=== PATIENT | male | born 1955 | race Caucasian/White ===

== ENCOUNTER → 2016-12-15 | Outpatient (REF) | payer OTHER ==
[~2016-12-15] MED LIST: CLON1TAB PO; DEPA1TAB3 PO; DEPA500T2 PO; HYDR1CRE TOP; TRAZ50TA11 PO
[2016-12-15 20:03] LABS: MEAN CORPUSCULAR HGB CONC 33.6 g/dl (32.0-36.5); MEAN CORPUSCULAR VOLUME 89.3 fl (80.0-96.0); PLATELET COUNT, AUTOMATED 170 10^3/uL (150-450); RED CELL DISTRIBUTION WIDTH 13.2 % (11.5-14.5); WHITE BLOOD COUNT 6.3 10^3/uL (4.0-10.0)
[2016-12-15 20:14] LABS: ALBUMIN 3.8 GM/DL (3.2-5.2); ALBUMIN/GLOBULIN RATIO 1.09 (1.00-1.93); ALKALINE PHOSPHATASE 91 U/L (45-117); ALT/SGPT 73 U/L (12-78); ANION GAP 9 MEQ/L (8-16); AST/SGOT 31 U/L (15-37); BILIRUBIN,TOTAL 0.5 MG/DL (0.2-1.0); BLOOD UREA NITROGEN 17 MG/DL (7-18); CALCIUM LEVEL 9.1 MG/DL (8.5-10.1); CARBON DIOXIDE LEVEL 30 MEQ/L (21-32); CHLORIDE LEVEL 99 MEQ/L (98-107); CHOLESTEROL LEVEL 282 MG/DL (<200); CREATININE FOR GFR 1.19 MG/DL (0.70-1.30); GLOMERULAR FILTRATION RATE > 60.0 (>56); GLUCOSE, FASTING 92 MG/DL (70-105); POTASSIUM SERUM 4.4 MEQ/L (3.5-5.1); SODIUM LEVEL 138 MEQ/L (136-145); TOTAL PROTEIN 7.3 GM/DL (6.4-8.2); TRIGLYCERIDES LEVEL 239 MG/DL (<150); VITAMIN B12 LEVEL 1383 PG/ML (247-911)
== END ==
LOC: M SFHCCLAY 18:05
PROVIDERS: ATTEND Nurse Practitioner Family
DX: F32.9 Major depressive disorder, single episode, unspecified (principal)

== ENCOUNTER → 2016-12-15 | Outpatient (REF) | payer OTHER ==
[2016-12-15 20:10] LABS: ALBUMIN 3.7 GM/DL (3.2-5.2); ALBUMIN/GLOBULIN RATIO 1.09 (1.00-1.93); ALKALINE PHOSPHATASE 89 U/L (45-117); ALT/SGPT 76 U/L (12-78); ANION GAP 8 MEQ/L (8-16); AST/SGOT 29 U/L (15-37); BILIRUBIN,DIRECT 0.1 MG/DL (0.0-0.2); BILIRUBIN,TOTAL 0.5 MG/DL (0.2-1.0); BLOOD UREA NITROGEN 17 MG/DL (7-18); CARBON DIOXIDE LEVEL 29 MEQ/L (21-32); CHLORIDE LEVEL 100 MEQ/L (98-107); CHOLESTEROL LEVEL 276 MG/DL (< 200); CHOLESTEROL LEVEL 276 MG/DL (<200); CREATININE FOR GFR 1.12 MG/DL (0.70-1.30); GLOMERULAR FILTRATION RATE > 60.0 (>56); GLUCOSE, FASTING 92 MG/DL (70-105); POTASSIUM SERUM 4.3 MEQ/L (3.5-5.1); SODIUM LEVEL 137 MEQ/L (136-145); TOTAL PROTEIN 7.1 GM/DL (6.4-8.2); TRIGLYCERIDES LEVEL 232 MG/DL (<150)
[2016-12-18 00:07] LABS: Lyme Disease IgG/IgM Antibodie <0.91 ISR (0.00-0.90); Lyme Disease IgM Ab Quantitati <0.80 index (0.00-0.79)
== END ==
LOC: M LAB REF 18:03
PROVIDERS: ATTEND Nurse Practitioner Psychiatric/Mental Health
DX: F31.2 Bipolar disorder, current episode manic severe with psychotic features (principal)

== ENCOUNTER → 2017-04-12 | Outpatient (REF) | payer OTHER ==
[2017-04-12 12:15] LABS: HEMATOCRIT 47.5 % (42.0-52.0); HEMOGLOBIN 16.2 g/dl (14.0-18.0); MEAN CORPUSCULAR HEMOGLOBIN 29.7 pg (27.0-33.0); MEAN CORPUSCULAR HGB CONC 34.1 g/dl (32.0-36.5); MEAN CORPUSCULAR VOLUME 87.2 fl (80.0-96.0); PLATELET COUNT, AUTOMATED 168 10^3/uL (150-450); RED BLOOD COUNT 5.45 10^6/uL (4.30-6.10); RED CELL DISTRIBUTION WIDTH 12.7 % (11.5-14.5); WHITE BLOOD COUNT 6.9 10^3/uL (4.0-10.0)
[2017-04-12 12:36] LABS: ALBUMIN 3.7 GM/DL (3.2-5.2); ALBUMIN/GLOBULIN RATIO 1.03 (1.00-1.93); ALKALINE PHOSPHATASE 92 U/L (45-117); ALT/SGPT 105 U/L (12-78); ANION GAP 8 MEQ/L (8-16); AST/SGOT 47 U/L (7-37); BILIRUBIN,DIRECT 0.1 MG/DL (0.0-0.2); BILIRUBIN,TOTAL 0.4 MG/DL (0.2-1.0); BLOOD UREA NITROGEN 25 MG/DL (7-18); CALCIUM LEVEL 8.7 MG/DL (8.8-10.2); CARBON DIOXIDE LEVEL 28 MEQ/L (21-32); CHLORIDE LEVEL 101 MEQ/L (98-107); CHOLESTEROL LEVEL 187 MG/DL (<200); CHOLESTEROL RISK RATIO 5.666 (<5); CREATININE FOR GFR 1.04 MG/DL (0.70-1.30); GLOMERULAR FILTRATION RATE > 60.0 (>49); GLUCOSE, FASTING 94 MG/DL (70-100); HDL CHOLESTEROL 33 MG/DL (>40); NON-HDL-C 154 MG/DL; POTASSIUM SERUM 4.1 MEQ/L (3.5-5.1); PSA SCREENING 1.24 NG/ML (< 4.0); SODIUM LEVEL 137 MEQ/L (136-145); TOTAL PROTEIN 7.3 GM/DL (6.4-8.2); TRIGLYCERIDES LEVEL 180 MG/DL (<150)
[2017-04-12 12:45] LABS: TOTAL 25(OH) VITAMIN D 54.4 NG/ML (30.0-100.0); VITAMIN B12 LEVEL 1622 PG/ML (247-911)
== END ==
LOC: M SFHCCLAY 08:18
DX: F32.9 Major depressive disorder, single episode, unspecified (principal); E78.5 Hyperlipidemia, unspecified; Z12.5 Encounter for screening for malignant neoplasm of prostate; E55.9 Vitamin D deficiency, unspecified
CPT/HCPCS: 82607

== ENCOUNTER → 2017-10-05 | Outpatient (REF) | payer OTHER ==
[2017-10-05 13:01] LABS: ALBUMIN 3.5 GM/DL (3.2-5.2); ALBUMIN/GLOBULIN RATIO 1.06 (1.00-1.93); ALKALINE PHOSPHATASE 81 U/L (45-117); ALT/SGPT 110 U/L (12-78); ANION GAP 10 MEQ/L (8-16); AST/SGOT 48 U/L (7-37); BILIRUBIN,TOTAL 0.4 MG/DL (0.2-1.0); BLOOD UREA NITROGEN 28 MG/DL (7-18); CALCIUM LEVEL 8.3 MG/DL (8.8-10.2); CARBON DIOXIDE LEVEL 28 MEQ/L (21-32); CHLORIDE LEVEL 103 MEQ/L (98-107); CHOLESTEROL LEVEL 183 MG/DL (<200); CHOLESTEROL RISK RATIO 5.903 (<5); GLOMERULAR FILTRATION RATE > 60.0 (>49); GLUCOSE, FASTING 100 MG/DL (70-100); HDL CHOLESTEROL 31 MG/DL (>40); LDL CHOLESTEROL 102.4 MG/DL (<100); NON-HDL-C 152 MG/DL; POTASSIUM SERUM 4.1 MEQ/L (3.5-5.1); SODIUM LEVEL 141 MEQ/L (136-145); TOTAL PROTEIN 6.8 GM/DL (6.4-8.2); TRIGLYCERIDES LEVEL 248 MG/DL (<150)
[2017-10-05 16:42] LABS: VITAMIN B12 LEVEL 743 PG/ML (247-911)
== END ==
LOC: M SFHCCLAY 08:59
DX: E78.5 Hyperlipidemia, unspecified (principal); E55.9 Vitamin D deficiency, unspecified
CPT/HCPCS: 82607

== ENCOUNTER → 2017-10-05 | Outpatient (REF) | payer OTHER ==
[2017-10-05 12:56] LABS: ALBUMIN 3.5 GM/DL (3.2-5.2); ALBUMIN/GLOBULIN RATIO 1.06 (1.00-1.93); ALKALINE PHOSPHATASE 85 U/L (45-117); ALT/SGPT 106 U/L (12-78); ANION GAP 8 MEQ/L (8-16); AST/SGOT 46 U/L (7-37); BILIRUBIN,TOTAL 0.4 MG/DL (0.2-1.0); BLOOD UREA NITROGEN 28 MG/DL (7-18); CALCIUM LEVEL 8.7 MG/DL (8.8-10.2); CARBON DIOXIDE LEVEL 31 MEQ/L (21-32); CHLORIDE LEVEL 101 MEQ/L (98-107); CREATININE FOR GFR 1.22 MG/DL (0.70-1.30); GLOMERULAR FILTRATION RATE > 60.0 (>49); GLUCOSE, FASTING 103 MG/DL (70-100); SODIUM LEVEL 140 MEQ/L (136-145); TOTAL PROTEIN 6.8 GM/DL (6.4-8.2); VALPROIC ACID (DEPAKOTE) 75.5 UG/ML (50.0-100.0)
== END ==
LOC: M LABDRAWC 12:03
DX: F31.2 Bipolar disorder, current episode manic severe with psychotic features (principal)

== ENCOUNTER → 2018-02-04 | Outpatient (REF) | payer OTHER ==
[~2018-02-04] MED LIST changes: -CLON1TAB PO; +CLON1TAB8 PO; +TRAZ-160 PO; -TRAZ50TA11 PO
[2018-02-04 16:43] LABS: CHOLESTEROL RISK RATIO 6.818 (<5)
== END ==
LOC: M SFHCCLAY 10:48
PROVIDERS: ATTEND Nurse Practitioner Family
DX: E78.5 Hyperlipidemia, unspecified (principal)

== ENCOUNTER → 2018-06-06 | Outpatient (REF) | payer OTHER ==
[2018-06-06 11:43] LABS: ALBUMIN 3.8 GM/DL (3.2-5.2); BILIRUBIN,DIRECT 0.1 MG/DL (0.0-0.2); BILIRUBIN,TOTAL 0.4 MG/DL (0.2-1.0); CHOLESTEROL RISK RATIO 6.382 (<5); TOTAL PROTEIN 7.2 GM/DL (6.4-8.2)
== END ==
LOC: M SFHCCLAY 07:43
PROVIDERS: ATTEND Nurse Practitioner Family
DX: E78.5 Hyperlipidemia, unspecified (principal)

== ENCOUNTER → 2018-06-06 | Outpatient (REF) | payer OTHER | LOC: M LABDRAWC 10:58 | PROVIDERS: ATTEND Nurse Practitioner Psychiatric/Mental Health | DX: F31.32 Bipolar disorder, current episode depressed, moderate (principal) ==

== ENCOUNTER → 2018-09-14 | Outpatient (REF) | payer OTHER ==
[~2018-09-14] MED LIST changes: -TRAZ-160 PO; +TRAZ-252 PO
== END ==
LOC: M LABDRAWC 11:23
PROVIDERS: ATTEND Nurse Practitioner Psychiatric/Mental Health
DX: F31.32 Bipolar disorder, current episode depressed, moderate (principal)

== ENCOUNTER → 2019-01-10 | Outpatient (REF) | payer OTHER ==
[2019-01-10 18:42] LABS: HEMOGLOBIN A1c 7.2 %
== END ==
LOC: M LABDRAWC 16:33
PROVIDERS: ATTEND Nurse Practitioner Psychiatric/Mental Health
DX: F31.32 Bipolar disorder, current episode depressed, moderate (principal); Z79.899 Other long term (current) drug therapy

== ENCOUNTER → 2019-01-10 | Outpatient (REF) | payer OTHER ==
[2019-01-10 18:26] LABS: HEMATOCRIT 48.1 % (42.0-52.0); HEMOGLOBIN 15.6 g/dl (13.5-17.5); MEAN CORPUSCULAR HEMOGLOBIN 29.5 pg (27.0-33.0); MEAN CORPUSCULAR HGB CONC 32.4 g/dl (32.0-36.5); MEAN CORPUSCULAR VOLUME 90.9 fl (80.0-96.0); PLATELET COUNT, AUTOMATED 214 10^3/uL (150-450); RED BLOOD COUNT 5.29 10^6/uL (4.30-6.10); WHITE BLOOD COUNT 8.6 10^3/uL (4.0-10.0)
[2019-01-10 18:57] LABS: ALBUMIN 3.6 GM/DL (3.2-5.2); ALT/SGPT 77 U/L (12-78); BILIRUBIN,TOTAL 0.5 MG/DL (0.2-1.0); BLOOD UREA NITROGEN 28 MG/DL (7-18); CALCIUM LEVEL 9.2 MG/DL (8.8-10.2); CARBON DIOXIDE LEVEL 33 MEQ/L (21-32); CHLORIDE LEVEL 99 MEQ/L (98-107); CHOLESTEROL LEVEL 148 MG/DL (<200); CHOLESTEROL RISK RATIO 4.625 (<5); CREATININE FOR GFR 1.27 MG/DL (0.70-1.30); GLOMERULAR FILTRATION RATE > 60.0 (>49); GLUCOSE, FASTING 124 MG/DL (70-100); HDL CHOLESTEROL 32 MG/DL (>40); LDL CHOLESTEROL 78 MG/DL (<100); NON-HDL-C 116 MG/DL; POTASSIUM SERUM 4.9 MEQ/L (3.5-5.1); SODIUM LEVEL 136 MEQ/L (136-145); TOTAL PROTEIN 7.1 GM/DL (6.4-8.2); TRIGLYCERIDES LEVEL 189 MG/DL (<150)
[2019-01-10 19:00] LABS: TOTAL 25(OH) VITAMIN D 18.5 NG/ML (30.0-100.0)
== END ==
LOC: M SFHCCLAY 09:15
PROVIDERS: ATTEND Nurse Practitioner Family
DX: Z11.8 Encounter for screening for other infectious and parasitic diseases (principal); K21.9 Gastro-esophageal reflux disease without esophagitis; I10 Essential (primary) hypertension; E78.5 Hyperlipidemia, unspecified; E55.9 Vitamin D deficiency, unspecified; W57.XXXA Bitten or stung by nonvenomous insect and other nonvenomous arthropods, initial encounter; X58.XXXA Exposure to other specified factors, initial encounter

== ENCOUNTER → 2019-02-01 | Outpatient (REF) | payer OTHER | LOC: M SFHCCLAY 15:29 | PROVIDERS: ATTEND Nurse Practitioner Family | DX: R50.9 Fever, unspecified (principal) ==

== ENCOUNTER → 2019-02-02 | Outpatient (REF) | payer OTHER ==
[2019-02-02 17:18] LABS: APPEARANCE, URINE CLEAR (CLEAR); BACTERIA, URINE AUTO NEGATIVE (NEGATIVE); BILIRUBIN, URINE AUTO NEGATIVE (NEGATIVE); BLOOD, URINE BLOOD NEGATIVE (NEGATIVE); COLOR, URINE YELLOW (YELLOW); GLUCOSE, URINE (UA) AUTO NEGATIVE (NEGATIVE); KETONE, URINE AUTO NEGATIVE (NEGATIVE); LEUKOCYTE ESTERASE, URINE AUTO NEGATIVE (NEGATIVE); NITRITE, URINE AUTO NEGATIVE (NEGATIVE); PROTEIN, URINE AUTO NEGATIVE (NEGATIVE); RBC, URINE AUTO 0 /HPF (0-3); SPECIFIC GRAVITY URINE AUTO 1.013 (1.002-1.035); SQUAMOUS EPITHELIAL CELL UR AU 0 /HPF (0-6); UROBILINOGEN, URINE AUTO 0.2 mg/dL (0.0-2.0); WBC, URINE AUTO 3 /HPF (0-3)
== END ==
LOC: M SFHCCLAY 07:04
PROVIDERS: ATTEND Nurse Practitioner Family
DX: R35.0 Frequency of micturition (principal); R50.9 Fever, unspecified

== ENCOUNTER → 2019-03-16 | Outpatient (REF) | payer OTHER ==
[2019-03-16 17:51] LABS: AMORPHOUS SEDIMENT SMALL (NEGATIVE); APPEARANCE, URINE HAZY (CLEAR); BACTERIA, URINE AUTO NEGATIVE (NEGATIVE); BILIRUBIN, URINE AUTO NEGATIVE (NEGATIVE); BLOOD, URINE BLOOD NEGATIVE (NEGATIVE); COLOR, URINE AMBER (YELLOW); GLUCOSE, URINE (UA) AUTO NEGATIVE (NEGATIVE); KETONE, URINE AUTO NEGATIVE (NEGATIVE); LEUKOCYTE ESTERASE, URINE AUTO NEGATIVE (NEGATIVE); MUCUS, URINE SMALL (NEGATIVE); NITRITE, URINE AUTO NEGATIVE (NEGATIVE); PROTEIN, URINE AUTO 1+ mg/dL (NEGATIVE); RBC, URINE AUTO 0 /HPF (0-3); SPECIFIC GRAVITY URINE AUTO 1.027 (1.002-1.035); SQUAMOUS EPITHELIAL CELL UR AU 0 /HPF (0-6); WBC, URINE AUTO 2 /HPF (0-3)
== END ==
LOC: M SMT 16:47
PROVIDERS: ATTEND Nurse Practitioner Women's Health
DX: R35.1 Nocturia (principal)

== ENCOUNTER → 2019-04-06 | Outpatient (REF) | payer OTHER ==
[2019-04-06 12:53] LABS: CHOLESTEROL RISK RATIO 6.958 (<5); TOTAL 25(OH) VITAMIN D 10.3 NG/ML (30.0-100.0)
[2019-04-06 13:26] LABS: MALB URINE SIEMENS 23.7 MG/L; MAU/CREAT RATIO 9.8 MCG/MG (0.0-30.0)
[2019-04-06 13:38] LABS: HEMOGLOBIN A1c 8.7 %
== END ==
LOC: M SFHCCLAY 08:27
PROVIDERS: ATTEND Nurse Practitioner Family
DX: E11.69 Type 2 diabetes mellitus with other specified complication (principal); E78.5 Hyperlipidemia, unspecified; E55.9 Vitamin D deficiency, unspecified

== ENCOUNTER 2019-07-19 17:48 | Emergency (ER) | payer OTHER ==
[~2019-07-19] VITALS: Ht 172.7 cm; Wt 104.5 kg
[2019-07-19] MEDS ORDERED: ATOR40TA75 (18:00)
[2019-07-19] MEDS ORDERED: LISI-538 (18:00)
[2019-07-19] MEDS ORDERED: METF500T13 (18:00)
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
[2019-07-19 19:16] VITALS: BP 120/68
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
== END 2019-07-19 19:41 | disposition home or self-care (01) ==
LOC: EDBD 17:48 → M ED 17:48
DX: Z04.1 Encounter for examination and observation following transport accident (principal); I10 Essential (primary) hypertension; F33.9 Major depressive disorder, recurrent, unspecified; F84.5 Asperger's syndrome; Z79.899 Other long term (current) drug therapy; Z79.84 Long term (current) use of oral hypoglycemic drugs; J30.89 Other allergic rhinitis

== ENCOUNTER → 2019-07-31 | Outpatient (REF) | payer OTHER ==
[~2019-07-31] MED LIST changes: +ATOR40TA75; +LISI-538; +METF500T13
[2019-07-31 11:58] LABS: BASO # 0.1 10^3/uL (0.0-0.2); BASO % 0.9 % (0.0-1.0); EOS # 0.8 10^3/uL (0.0-0.5); EOS % 11.3 % (0.0-3.0); HEMATOCRIT 46.3 % (42.0-52.0); HEMOGLOBIN 14.7 g/dl (13.5-17.5); LYMPH # 2.4 10^3/uL (1.5-5.0); LYMPH % 34.1 % (24.0-44.0); MEAN CORPUSCULAR HEMOGLOBIN 29.5 pg (27.0-33.0); MEAN CORPUSCULAR HGB CONC 31.7 g/dl (32.0-36.5); MEAN CORPUSCULAR VOLUME 92.8 fl (80.0-96.0); MONO # 0.9 10^3/uL (0.0-0.8); MONO % 12.6 % (0.0-5.0); NEUTROPHILS # 2.8 10^3/uL (1.5-8.5); NEUTROPHILS % 40.5 % (36.0-66.0); PLATELET COUNT, AUTOMATED 226 10^3/uL (150-450); RED BLOOD COUNT 4.99 10^6/uL (4.30-6.10)
[2019-07-31 12:29] LABS: ALBUMIN 3.3 GM/DL (3.2-5.2); ALT/SGPT 91 U/L (12-78); BILIRUBIN,TOTAL 0.3 MG/DL (0.2-1.0); BLOOD UREA NITROGEN 20 MG/DL (7-18); CALCIUM LEVEL 8.7 MG/DL (8.8-10.2); CARBON DIOXIDE LEVEL 30 MEQ/L (21-32); CHLORIDE LEVEL 108 MEQ/L (98-107); CHOLESTEROL LEVEL 143 MG/DL (<200); CHOLESTEROL RISK RATIO 4.612 (<5); CREATININE FOR GFR 1.01 MG/DL (0.70-1.30); ERYTHROCYTE SEDIMENTATION RATE 6 mm/hr (0-20); FREE T4 0.88 NG/DL (0.76-1.46); GLOMERULAR FILTRATION RATE > 60.0 (>49); GLUCOSE, FASTING 129 MG/DL (70-100); HDL CHOLESTEROL 31 MG/DL (>40); LDL CHOLESTEROL 81 MG/DL (<100); NON-HDL-C 112 MG/DL; POTASSIUM SERUM 4.8 MEQ/L (3.5-5.1); RHEUMATOID FACTOR QUANT < 10.0 IU/ML (<15.0); SODIUM LEVEL 142 MEQ/L (136-145); TOTAL PROTEIN 6.8 GM/DL (6.4-8.2); TRIGLYCERIDES LEVEL 156 MG/DL (<150)
[2019-07-31 12:30] LABS: HEMOGLOBIN A1c 8.1 %
[2019-08-01 13:33] LABS: ANTINUCLEAR ANTIBODIES DIRECT Negative (Negative)
== END ==
LOC: M LABDRAWC 11:14
PROVIDERS: ATTEND Psychiatry & Neurology Neurology
DX: E11.9 Type 2 diabetes mellitus without complications (principal); E07.9 Disorder of thyroid, unspecified

== ENCOUNTER → 2019-07-31 | Outpatient (REF) | payer OTHER ==
[2019-07-31 12:26] LABS: CHOLESTEROL RISK RATIO 4.656 (<5); VALPROIC ACID (DEPAKOTE) 75.2 UG/ML (50.0-100.0)
[2019-07-31 12:30] LABS: HEMOGLOBIN A1c 8.1 %
[2019-07-31 12:48] LABS: TOTAL 25(OH) VITAMIN D 29.8 NG/ML (30.0-100.0)
== END ==
LOC: M SFHCCLAY 08:20
PROVIDERS: ATTEND Nurse Practitioner Family
DX: E11.69 Type 2 diabetes mellitus with other specified complication (principal); E78.5 Hyperlipidemia, unspecified; F32.9 Major depressive disorder, single episode, unspecified; E55.9 Vitamin D deficiency, unspecified

== ENCOUNTER → 2019-08-11 | Outpatient (REF) | payer OTHER ==
[~2019-08-11] MED LIST changes: -ATOR40TA75; +ATOR40TA75 PO; +DIVA500T9 PO; +FURO40TA2 PO; +LATU1TAB PO; +LATU40TA PO; -LISI-538; +LISI-538 PO; -METF500T13; +METF500T13 PO; +NICO21PAT TD; +OZEM2INJ SQ
[2019-08-11 11:53] LABS: BASO # 0.1 10^3/uL (0.0-0.2); BASO % 0.6 % (0.0-1.0); EOS # 0.4 10^3/uL (0.0-0.5); EOS % 5.3 % (0.0-3.0); HEMATOCRIT 46.1 % (42.0-52.0); HEMOGLOBIN 14.6 g/dl (13.5-17.5); LYMPH # 3.3 10^3/uL (1.5-5.0); LYMPH % 42.9 % (24.0-44.0); MEAN CORPUSCULAR HEMOGLOBIN 28.9 pg (27.0-33.0); MEAN CORPUSCULAR HGB CONC 31.7 g/dl (32.0-36.5); MEAN CORPUSCULAR VOLUME 91.3 fl (80.0-96.0); MONO # 1.2 10^3/uL (0.0-0.8); NEUTROPHILS # 2.8 10^3/uL (1.5-8.5); NEUTROPHILS % 35.8 % (36.0-66.0); PLATELET COUNT, AUTOMATED 208 10^3/uL (150-450); RED BLOOD COUNT 5.05 10^6/uL (4.30-6.10); WHITE BLOOD COUNT 7.8 10^3/uL (4.0-10.0)
[2019-08-11 12:16] LABS: ALBUMIN 3.6 GM/DL (3.2-5.2); BILIRUBIN,TOTAL 0.5 MG/DL (0.2-1.0); C REACTIVE PROTEIN QUANTITATIV 0.4 MG/DL (0.00-0.30); CALCIUM LEVEL 9.4 MG/DL (8.8-10.2); CREATININE FOR GFR 1.33 MG/DL (0.70-1.30); FREE T4 1.2 NG/DL (0.76-1.46); POTASSIUM SERUM 5.2 MEQ/L (3.5-5.1); THYROID STIMULATING HORMONE 2.54 uIU/ML (0.358-3.740); TOTAL PROTEIN 7.3 GM/DL (6.4-8.2)
[2019-08-11 17:39] LABS: TOTAL T3 127.2 NG/DL (60.0-181.0)
== END ==
LOC: M LABDRAWC 11:12
PROVIDERS: ATTEND Nurse Practitioner Family
DX: Z68.37 Body mass index [BMI] 37.0-37.9, adult (principal); R63.5 Abnormal weight gain

== ENCOUNTER 2019-10-12 11:50 | Inpatient (IN) | payer OTHER ==
[~2019-10-12] VITALS: Ht 172.7 cm; Wt 102.4 kg
[~2019-10-12 11:50] MED LIST changes: -DIVA500T9 PO; -FURO40TA2 PO; -LATU1TAB PO; -LATU40TA PO; -NICO21PAT TD; -OZEM2INJ SQ
[2019-10-12 12:49] LABS: HEMOGLOBIN 13.5 g/dl (13.5-17.5); MEAN CORPUSCULAR HEMOGLOBIN 29.9 pg (27.0-33.0); MEAN CORPUSCULAR HGB CONC 32.1 g/dl (32.0-36.5); MEAN CORPUSCULAR VOLUME 93.1 fl (80.0-96.0); PLATELET COUNT, AUTOMATED 290 10^3/uL (150-450); RED BLOOD COUNT 4.51 10^6/uL (4.30-6.10); WHITE BLOOD COUNT 7.8 10^3/uL (4.0-10.0)
[2019-10-12 13:24] LABS: ACETAMINOPHEN LEVEL < 2.0 UG/ML (10.0-30.0); ALBUMIN 3.4 GM/DL (3.2-5.2); ALT/SGPT 53 U/L (12-78); BILIRUBIN,DIRECT 0.1 MG/DL (0.0-0.2); BILIRUBIN,TOTAL 0.4 MG/DL (0.2-1.0); BLOOD UREA NITROGEN 29 MG/DL (7-18); CALCIUM LEVEL 9.3 MG/DL (8.8-10.2); CARBON DIOXIDE LEVEL 35 MEQ/L (21-32); CHLORIDE LEVEL 98 MEQ/L (98-107); CREATININE FOR GFR 1.29 MG/DL (0.70-1.30); ETHYL ALCOHOL (ETHANOL) < 0.003 % (0.000-0.010); GLOMERULAR FILTRATION RATE > 60.0 (>49); GLUCOSE, FASTING 135 MG/DL (70-100); POTASSIUM SERUM 3.9 MEQ/L (3.5-5.1); SALICYLATE LEVEL 4.1 MG/DL (5.0-30.0); SODIUM LEVEL 134 MEQ/L (136-145)
[2019-10-12 15:28] LABS: AMPHETAMINES LEVEL URINE NEGATIVE (NEGATIVE); BARBITURATES URINE NEGATIVE (NEGATIVE); BENZODIAZEPINES URINE NEGATIVE (NEGATIVE); CANNABINOIDS URINE POSITIVE (NEGATIVE); COCAINE METABOLITE URINE NEGATIVE (NEGATIVE); METHADONE URINE NEGATIVE (NEGATIVE); OPIATES URINE NEGATIVE (NEGATIVE); PHENCYCLIDINE URINE NEGATIVE (NEGATIVE)
[2019-10-12] MEDS ORDERED: OZEM2INJ SQ (17:19)
[2019-10-12] MEDS ORDERED: FURO40TA2 PO (17:19)
[2019-10-12] MEDS ORDERED: LATU1TAB PO (17:19)
[2019-10-12] MEDS ORDERED: DIVA500T9 PO (17:19)
[2019-10-12] MEDS ORDERED: traZODone 50 MG TAB PO PRN (17:45)
[2019-10-12] MEDS ORDERED: NICOTINE 21MG/24HR 1 EA TRANSDERMAL TD PRN (17:45)
[2019-10-12] MEDS ORDERED: MAALOX 30 ML SUSP *UDC PO PRN (17:45)
[2019-10-12] MEDS ORDERED: OLANZapine ORAL DISINTEGRATING TAB 5MG PO PRN (17:45)
[2019-10-12] MEDS ORDERED: MOM 30ML SUSPENSION UDC PO PRN (17:45)
[2019-10-12] MEDS ORDERED: ACETAMINOPHEN TAB 650MG DOSE (2X325MG) PO PRN (17:45)
[2019-10-12] MEDS ORDERED: metFORMIN (GLUCOPHAGE) 500 MG TAB PO ONE (18:15)
[2019-10-12] MEDS: PALIPERIDONE 3 MG ER TAB (INVEGA) PO SCH (21:00)
[2019-10-12 22:39] VITALS: BP 128/86
[2019-10-13] MEDS ORDERED: UNRESOLVED CLARIFICATION ENTRY XX SCH (00:01)
[2019-10-13 07:28] VITALS: BP 148/80
--- NOTE | 2019-10-13 08:04 | MHHPEPDOC ---
[facility] History & Physical History and Physical DATE OF ADMISSION: Oct 12, 2019 at 17:36 Subjective HPI: Darci took a psych evaluation and was sent for this visit because he seemed like a threat to other people. 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 Patient reports hes never attempted suicide, however, hes had suicidal thoughts. He notes he believes in spirits and listens to their moral voices giving good lessons. Reports are of him living in [facility] and not being able to care for self due to psychosis MEDICAL HISTORY: He was admitted as a manic twice back in 2016. FAMILY HISTORY: Patient states his mother has bipolar, father has depression, nephew was admitted into a mental institution, and his sister has anger issues. 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 SOCIAL HISTORY - SUBSTANCE USE: He reports he occasionally drinks. Objective Appearance: Well nourished. Well groomed. Appears to be stated age. Affect: Mildly flat. Speech: Normal rate. Normal volume. Spontaneous and Fluid. Thought Form: Generally linear and logical although he has some bizarre delusions at times. Thought Content: No evidence of aggressive or homicidal ideation. Reports some voices but does not appear to be responding to internal stimuli. No evidence of delusions. No evidence of suicidal ideation. No thoughts of self harm. Judgement: Poor. Insight: Poor. Assessment F25.0 Schizoaffective disorder, bipolar type Plan Increase Latuda to 80 mg nightly. Continue Depakote at 500 mg with no changes. Treatment priorities are altered thoughts, non-compliance, self-care deficit. Estimated length of stay is 3-5 days. Vital Signs Vital Signs Date Time Temp Pulse Resp B/P (MAP) Pulse Ox O2 Delivery O2 Flow Rate FiO2 10/13/19 07:28 97.5 70 16 148/80 (102) 97 Room Air Laboratory Data 24H Labs Laboratory Tests 2 10/12/19 12:38: Nucleated Red Blood Cells % (auto) 0.0, Anion Gap 1L, Glomerular Filtration Rate > 60.0, Calcium Level 9.3, Total Bilirubin 0.4, Direct Bilirubin 0.1, Aspartate Amino Transf (AST/SGOT) 29, Alanine Aminotransferase (ALT/SGPT) 53, Alkaline Phosphatase 78, Total Protein 7.0, Albumin 3.4, Albumin/Globulin Ratio 0.9, Thyroid Stimulating Hormone (TSH) 2.240, Salicylates Level 4.1L, Acetaminophen Level < 2.0L, Ethyl Alcohol Level < 0.003 10/12/19 14:15: Urine Opiates Screen NEGATIVE, Urine Methadone Screen NEGATIVE, Urine Barbiturates Screen NEGATIVE, Urine Phencyclidine Screen NEGATIVE, Urine Amphetamines Screen NEGATIVE, Urine Benzodiazepines Screen NEGATIVE, Urine Cocaine Metabolite Screen NEGATIVE, Urine Cannabinoids Screen POSITIVEH CBC/BMP Laboratory Tests 10/12/19 12:38 Medications Scheduled Atorvastatin Calcium (Atorvastatin Calcium) 40 Mg Tablet, 40 MG PO DAILY, (R eported) Divalproex Sodium (Divalproex Sodium ER) 500 Mg Tab.er.24h, 500 MG PO DAILY, (Reported) Furosemide (Furosemide) 40 Mg Tablet, 40 MG PO DAILY, (Reported) Lisinopril (Lisinopril) 20 Mg Tablet, 20 MG PO DAILY, (Reported) Lurasidone HCl (Latuda) 60 Mg Tablet, 60 MG PO QPM, (Reported) Metformin HCl (Metformin HCl) 500 Mg Tablet, 500 MG PO TID, (Reported) Semaglutide (Ozempic) 0.25 Mg/0.2 Ml Pen.injctr, 0.5 MG SQ QWEEK, (Reported) Allergies Coded Allergies: SEASONAL ALLERGIES (Unverified Allergy, Unknown, 08/19/14) ANDRE COTTO DO Oct 13, 2019 08:04
[2019-10-13] MEDS: PALIPERIDONE 3 MG ER TAB (INVEGA) PO SCH (08:28)
[2019-10-13] MEDS: ATORVASTATIN 20 MG TAB PO SCH (08:31)
[2019-10-13] MEDS: lisinopriL 20 MG TAB PO SCH (08:32)
[2019-10-13] MEDS: DIVALPROEX 500MG *ER* TAB PO SCH (08:32)
[2019-10-13] MEDS: metFORMIN (GLUCOPHAGE) 500 MG TAB PO SCH ×3 (08:33→17:33)
[2019-10-13] MEDS: FUROSEMIDE 40 MG TAB PO SCH (08:33)
[2019-10-13] MEDS ORDERED: metFORMIN (GLUCOPHAGE) 1000 MG TABLET PO SCH (09:00)
[2019-10-13 16:00] VITALS: BP 104/60
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
[2019-10-13] MEDS: LURASIDONE HCL 40 MG TAB (LATUDA) PO SCH (17:54)
[2019-10-13] MEDS ORDERED: LURASIDONE 20 MG TAB (LATUDA) PO SCH (18:00)
[2019-10-13 19:32] LABS: CALCIUM LEVEL 9.1 MG/DL (8.8-10.2); CREATININE FOR GFR 1.65 MG/DL (0.70-1.30); GLOMERULAR FILTRATION RATE 45.2 (>49)
[2019-10-14 06:34] VITALS: BP 148/74
[2019-10-14] MEDS: metFORMIN (GLUCOPHAGE) 500 MG TAB PO SCH ×2 (07:58→12:05)
[2019-10-14] MEDS ORDERED: DIVALPROEX 500MG *ER* TAB PO SCH (09:00)
[2019-10-14] MEDS: lisinopriL 20 MG TAB PO SCH (09:05)
[2019-10-14] MEDS: ATORVASTATIN 20 MG TAB PO SCH (09:05)
[2019-10-14] MEDS: DIVALPROEX 500MG *ER* TAB PO SCH (09:05)
[2019-10-14] MEDS: FUROSEMIDE 40 MG TAB PO SCH (09:06)
[2019-10-14 15:11] LABS: HEMOGLOBIN A1c 6.2 %
[2019-10-14 16:16] VITALS: BP 106/60
[2019-10-14] MEDS: LURASIDONE HCL 40 MG TAB (LATUDA) PO SCH (17:45)
[2019-10-15 06:39] VITALS: BP 146/64
[2019-10-15] MEDS: lisinopriL 20 MG TAB PO SCH (09:23)
[2019-10-15] MEDS: DIVALPROEX 500MG *ER* TAB PO SCH (09:23)
[2019-10-15] MEDS: FUROSEMIDE 40 MG TAB PO SCH (09:24)
[2019-10-15] MEDS: ATORVASTATIN 20 MG TAB PO SCH (09:24)
[2019-10-15 16:35] VITALS: BP 134/89
[2019-10-15] MEDS: LURASIDONE HCL 40 MG TAB (LATUDA) PO SCH (17:39)
[2019-10-16 06:22] VITALS: BP 131/82
[2019-10-16] MEDS: lisinopriL 20 MG TAB PO SCH (09:09)
[2019-10-16] MEDS: ATORVASTATIN 20 MG TAB PO SCH (09:09)
[2019-10-16] MEDS: FUROSEMIDE 40 MG TAB PO SCH (09:09)
[2019-10-16] MEDS: DIVALPROEX 500MG *ER* TAB PO SCH (09:10)
--- NOTE | 2019-10-16 11:43 | MHIPNPDOC ---
[facility] Progress Note Progress Note DATE OF SERVICE: 10/16/19 Subjective HPI: Darci presents today for a follow up. Dr. Overton and his sister are concerned regarding his living situation. He denies any SI or HI. Objective Appearance: Well groomed. Well nourished. Appears to be stated age. Behavior: Pleasant. Engaged. Cooperative with good eye contact. Affect: Appropriate to context. Full range. Mood: Generally good. Euthymic. Appropriately reactive. Speech: Normal rate. Normal volume. Spontaneous and Fluid. Motor: No gross motor abnormalities. Cognition: Alert, Attentive, and Oriented to person, place, time. Memory: No formal testing. No gross abnormalities of short or senior living memory noted during interview. Thought Form: Linear and goal directed. Thought Content: No thoughts of self harm. No evidence of delusions. No evidence of aggressive or homicidal ideation. No evidence of suicidal ideation. Perception: No perceptual abnormalities noted. Judgement: Intact as evidenced by decision making in the recent past. Insight: Good insight into symptoms and treatment options. Assessment F25.0 Schizoaffective disorder, bipolar type Plan Continue current medications. I will attempt to call Dr. Overton; however, he has not returned my call. Sister reportedly has concerns but is ambivalent about helping the patient. Patient wants to return home. The home is not condemned. Will attempt to ascertain more, but likely discharged tomorrow. He does not meet involuntary criteria and does not likely seem able to help by DSS and does not want TLS or assisted treatment. Vital Signs Vital Signs Date Time Temp Pulse Resp B/P (MAP) Pulse Ox O2 Delivery O2 Flow Rate FiO2 10/16/19 09:09 131/82 10/16/19 06:22 97.3 79 18 10/14/19 06:34 Room Air 10/13/19 07:28 97 Current Medications Current Medications Medications (Trade) Dose Ordered Sig/Sukh Route PRN Reason Start Time Stop Time Status Last Admin Dose Admin Acetaminophen (Tylenol Tab) 650 mg Q6HP PRN PO HEADACHE or DISCOMFORT 10/12/19 17:45 Al Hydrox/Mg Hydrox/Simethicone (Mylanta) 30 ml Q4HP PRN PO HEARTBURN/INDIGESTION 10/12/19 17:45 Atorvastatin Calcium (Lipitor) 40 mg DAILY PO 10/13/19 09:00 10/16/19 09:09 Divalproex Sodium (Depakote Er) 500 mg DAILY PO 10/13/19 09:00 10/16/19 09:10 Divalproex Sodium (Depakote Er) 500 mg DAILY PO 10/14/19 09:00 10/13/19 09:44 DC Furosemide (Lasix) 40 mg DAILY PO 10/13/19 09:00 10/16/19 09:09 Home Med (Med Rec Complete!) ASDIRECTED XX 10/12/19 17:30 10/12/19 17:20 DC Lisinopril (Prinivil) 20 mg DAILY PO 10/13/19 09:00 10/16/19 09:09 Lurasidone HCl (Latuda) 80 mg DAILY@1800 PO 10/13/19 18:00 10/13/19 17:39 DC 10/13/19 17:33 Lurasidone HCl (Latuda) 80 mg DAILY@1800 PO 10/13/19 18:00 10/15/19 17:39 Magnesium Hydroxide (Milk Of Magnesia) 30 ml DAILYPRN PRN PO CONSTIPATION 10/12/19 17:45 Metformin HCl (Glucophage) 500 mg WM PO 10/13/19 08:00 10/14/19 16:03 DC 10/14/19 12:05 Metformin HCl (Glucophage) 1,500 mg DAILY PO 10/13/19 09:00 10/12/19 18:57 DC Miscellaneous (Unresolved Clarification Entry) SEE LABEL COMMENTS UNRESOLVED XX 10/13/19 00:01 10/13/19 12:31 DC Nicotine (Nicoderm Cq 21mg) 1 patch DAILY PRN TD WITHDRAWAL SYMPTOMS 10/12/19 17:45 Olanzapine (ZyPREXA ZYDIS) 5 mg Q6HP PRN PO ANXIETY/AGITATION 10/12/19 17:45 Paliperidone (Invega) 3 mg BID PO 10/12/19 21:00 10/13/19 09:38 DC Trazodone HCl (Desyrel) 50 mg QHSP PRN PO INSOMNIA 10/12/19 17:45 Allergies Coded Allergies: SEASONAL ALLERGIES (Unverified Allergy, Unknown, 08/19/14) ANDRE COTTO DO Oct 16, 2019 11:43
[2019-10-16 17:41] VITALS: BP 142/70
[2019-10-16] MEDS: LURASIDONE HCL 40 MG TAB (LATUDA) PO SCH (18:16)
--- NOTE | 2019-10-17 08:03 | MHDSPDOC ---
[facility] Discharge Summary Discharge Summary DATE OF ADMISSION: Oct 12, 2019 at 17:36 DATE OF DISCHARGE: Oct 17, 2019 at 16:08 DISCHARGE DIAGNOSES: F25.9 Schizoaffective disorder, unspecified CONSULTANTS INVOLVED:[ None (basic hospitalist screening)] REASON FOR ADMISSION & TREATMENT AND PROGRESS ON THE UNIT : The patient was admitted to the inpatient mental health unit after reportedly not taking care of himself. There was concern about psychosis. When the patient presented, he was channeling in a normal mental state sense with some unusual ideation. However, he was observed to zinc. Latuda was increased to 80 mg and Depakote remained the same. His level is mildly high, however, this was not a trophic level. Hes observed where he generally took care of himself and had no SI or HI. Psychosis was not a general strong part of his admission. He did appear somewhat flat sometimes; however he was reasonable about his statements and reported he wanted to continue living where he was. He was even saying its my right to choose where I want to live. This is how Anuradha lived and I generally decide to do so. The patient attended groups and had good insight and made progress on the unit. However, by the time of discharge was approached as he did not meet involuntary criteria, we discussed multiple current efforts, including TLS, assisted living, of which he was not interested in. His house reportedly is not condemned and [facility] would not be able to help him. He was open to living with his sister, but she declined. His sister reported that she was concerned about his discharge as well as Dr. Overton. However, his sister declined to participate in any safe discharge planning and otherwise washed her hands of her brothers care. Additionally, I attempted to contact Dr. Overton regarding his concerns, and at the time of discharge close to 24 hours after calling, I have not received any return call regarding his concerns. After discussion among the treatment team and additional determinations, it was found that for the most part, the patient, although living in a situation that could be considered unhygienic and generally a poor living style, did not meet involuntary criteria as he had a baseline mental status exam but denied SI and HI. On observation, he also took care of himself well enough and did not appear to be overtly impaired by a psychotic process and declined voluntary admission after multiple attempts at different treatment planning. The ultimate disposition was clear that he would in all likelihood return to his previous home. After discussing with the treatment team, it was decided to acknowledge the patients wants. I, in [place], do not have an argument to hold him against his will although he may not practice hygiene and living situations to the same level of most would, his living situations at this time does not appear to be putting him in imminent danger. Although long-term risks can be appreciated. Im not able to detain him based on that. Thus, he will be discharged in [place]. PS- Did speak to Dr. Martin, however, he only reported same concerns related to the housing issue as above, however, with out release no information was shared with him but his concerns were listened to. Unfortunately, he didn't provide any new information that could be used to hold patient for further treatment. DISCHARGE ASSESSMENT[improved] Legal status considerations: as above MENTAL STATUS EXAMINATION ON DISCHARGE: Behavior: Cooperative with good eye contact. Pleasant. Engaged. Affect: Mildly flat at times but reactive. Speech: Normal volume. Spontaneous and Fluid. Normal rate. Cognition: Alert, Attentive, and Oriented to person, place, time. Thought Form: Linear and goal directed. Thought Content: No evidence of aggressive or homicidal ideation. No evidence of suicidal ideation. No thoughts of self harm. No evidence of delusions. Judgement: Intact as evidenced by decision making in the recent past. Insight: Good insight into symptoms and treatment options. PLAN/FOLLOWUP ARRANGEMENTS: Follow up appointments made (PCP and MH in 5 days of D/C date) and safety plan completed. Safety Planning aspects completed prior to discharge [Medication supplies limited to 7 days with 4 refills to prevent accumulation to OD] [RN reviewed crisis hotline information and other aspects to empower patient to access care in interim before next appointment.] The amount of time spent in the coordination of care for this patient was approximately 30 minutes. Vital Signs/I&Os Vital Signs Date Time Temp Pulse Resp B/P (MAP) Pulse Ox O2 Delivery O2 Flow Rate FiO2 10/16/19 17:41 97.8 70 20 142/70 (94) 10/14/19 06:34 Room Air 10/13/19 07:28 97 Medications Scheduled Atorvastatin Calcium (Atorvastatin Calcium) 40 Mg Tablet, 40 MG PO DAILY, (Reported) Divalproex Sodium (Divalproex Sodium ER) 500 Mg Tab.er.24h, 500 MG PO DAILY, (Reported) Furosemide (Furosemide) 40 Mg Tablet, 40 MG PO DAILY, (Reported) Lisinopril (Lisinopril) 20 Mg Tablet, 20 MG PO DAILY, (Reported) Lurasidone Hydrochloride (Latuda) 40 Mg Tablet, 80 MG PO DAILY@1800 for mood for 7 Days, #14 Metformin HCl (Metformin HCl) 500 Mg Tablet, 500 MG PO TID, (Reported) Semaglutide (Ozempic) 0.25 Mg/0.2 Ml Pen.injctr, 0.5 MG SQ QWEEK, (Reported) Scheduled PRN Nicotine (Nicotine Patch) 21 Mg Patch.td24, 1 PATCH TD DAILY PRN for WITHDRAWAL SYMPTOMS for 30 Days, #30 Allergies Coded Allergies: SEASONAL ALLERGIES (Unverified Allergy, Unknown, 08/19/14) ANDRE COTTO DO Oct 17, 2019 08:03
[2019-10-17] MEDS ORDERED: NICO21PAT TD (08:20)
[2019-10-17] MEDS ORDERED: LATU40TA PO (08:20)
[2019-10-17] MEDS ORDERED: FUROSEMIDE 20 MG TAB PO SCH (09:00)
[2019-10-17] MEDS: ATORVASTATIN 20 MG TAB PO SCH (09:04)
[2019-10-17 09:05] VITALS: BP 137/67
[2019-10-17] MEDS: DIVALPROEX 500MG *ER* TAB PO SCH (09:05)
[2019-10-17] MEDS: lisinopriL 20 MG TAB PO SCH (09:05)
[2019-10-17 10:17] LABS: HEMATOCRIT 41.2 % (42.0-52.0); HEMOGLOBIN 13.6 g/dl (13.5-17.5); MEAN CORPUSCULAR HEMOGLOBIN 30.8 pg (27.0-33.0); MEAN CORPUSCULAR VOLUME 93.2 fl (80.0-96.0); PLATELET COUNT, AUTOMATED 272 10^3/uL (150-450); RED BLOOD COUNT 4.42 10^6/uL (4.30-6.10)
[2019-10-17 10:58] LABS: ALBUMIN 3.3 GM/DL (3.2-5.2); ALT/SGPT 51 U/L (12-78); BILIRUBIN,TOTAL 0.3 MG/DL (0.2-1.0); BLOOD UREA NITROGEN 22 MG/DL (7-18); CALCIUM LEVEL 9.2 MG/DL (8.8-10.2); CARBON DIOXIDE LEVEL 32 MEQ/L (21-32); CHLORIDE LEVEL 100 MEQ/L (98-107); CREATININE FOR GFR 1.18 MG/DL (0.70-1.30); GLOMERULAR FILTRATION RATE > 60.0 (>49); GLUCOSE, FASTING 139 MG/DL (70-100); POTASSIUM SERUM 4.4 MEQ/L (3.5-5.1); SODIUM LEVEL 138 MEQ/L (136-145); TOTAL PROTEIN 6.5 GM/DL (6.4-8.2)
--- NOTE | 2019-12-01 14:35 | MHIPN ---
DATE: 10/14/2019 He is seen in the presence of staff. VITAL SIGNS: Blood pressure 119/65 and earlier on 148/74, pulse 88, temperature 98.4. CHIEF COMPLAINT: Says feels okay mostly. SUBJECTIVE: Seen for followup in the presence of staff. Says he is concerned has physical issues. He does not think that the edema in his legs has gone down much. Acknowledges it has to some extent. Feels tired on occasion. He says mostly has been doing better and is feeling more relaxed. Spoke of disagreement with his sister and that sister thinks that he is responsible for her problems. MENTAL STATUS EXAMINATION: He is somewhat unkempt. He is cooperative. There is no agitation. No psychomotor retardation. He is coherent. Affect is reactive, though a bit restricted. Denies any thoughts of harming himself or anyone else. At present there are no psychotic features elicited. His cognition is grossly intact. Judgment and insight remain compromised. ASSESSMENT: Bipolar disorder. PLAN: Continue current care, assessment, and observations. We will continue with his current medications regimen. This includes Depakote and Latuda. He requests hydrocortisone ointment for his feet. We will look at that. We will ask Medicine to give an opinion on some of his other questions. He is to be encouraged to participate in activities in the unit. DAYANA
--- NOTE | 2019-12-01 14:36 | MHIPN ---
DATE: 10/15/2019 VITAL SIGNS: Blood pressure 146/64, pulse 78, temperature 97.5. CHIEF COMPLAINT: Says he feels okay. SUBJECTIVE: Seen for follow-up, in the presence of staff. Says he feels okay, and that he generally slept well. He feels swelling in his feet is getting better. Appetite is okay. Feels less distress, and feels more relaxed. MENTAL STATUS EXAMINATION: He is neater than yesterday. He is cooperative, though possibly a bit guarded. He is coherent. There is no agitation. No psychomotor retardation. Affect is reactive. There is no evidence of any thoughts of harming himself. Denies any suicidal thoughts or intent at present. No homicidal ideas or intent. Currently no evidence of any psychosis. Cognition grossly intact. Judgment and insight possibly somewhat improved. ASSESSMENT: Bipolar disorder. PLAN: Continue current care. Observation. Has medical issues, is being seen by the hospitalist. Has edema. Also requests Hydrocortisone cream for Athletes Foot. Further recommendations will be made by the assigned physician tomorrow. DAYANA
--- NOTE | 2019-12-01 15:06 | ECHO ---
DATE OF PROCEDURE: 10/16/2019 Age: 65 Gender: Male Height: 172 cm Weight: 101.6 kg. REFERRING PHYSICIAN: Marie Santos MD INDICATION: Edema unspecified MEASUREMENTS: 2D measurements: Septum 1.23 cm Posterior wall 1.23 cm Left ventricular diastole 4.4 cm Left atrium 3.3 cm Aortic root 3.6 cm Proximal ascending aorta 3.4 cm DOPPLER MEASUREMENTS: No aortic stenosis. No aortic regurgitation. Aortic valve velocity 136 cm/s LVOT velocity 112 cm/s No mitral regurgitation No mitral stenosis. Mitral E velocity 63.1 cm/s Mitral A velocity 74.2 cm/s Mitral deceleration time 271 milliseconds Trace tricuspid regurgitation No pulmonic regurgitation. MITRAL ANNULAR TISSUE DOPPLER: E prime septal 6.5 cm/s E prime lateral 15.2 cm/s DESCRIPTION: Rhythm was sinus with occasional premature ventricular contractions (PVCs). Image quality was fair. No pericardial effusion. This was a 2D, M-mode, color flow Doppler and pulse wave Doppler examination, including mitral annular tissue Doppler. CONCLUSIONS: 1. Very mild concentric left ventricular hypertrophy. Normal regional LV wall motion and wall thickening. Normal LV systolic function. Left ventricular ejection fraction (LVEF) 65% by visual estimate. Grade 1 LV diastolic dysfunction. 2. Technically difficult subcostal views. Unable to estimate central venous pressure. 3. Otherwise normal appearing echocardiogram and Doppler findings. MTDD
== END 2019-10-17 16:08 | disposition home or self-care (01) | DRG 750 ==
LOC: M ED 11:50 → M ED INP 17:36 → M PSY 21:30
PROVIDERS: ADMIT Psychiatry & Neurology Psychiatry; ATTEND Psychiatry & Neurology Addiction Medicine
DX: F25.9 Schizoaffective disorder, unspecified (principal); E11.51 Type 2 diabetes mellitus with diabetic peripheral angiopathy without gangrene; Z79.899 Other long term (current) drug therapy; I10 Essential (primary) hypertension; E66.9 Obesity, unspecified; Z68.34 Body mass index [BMI] 34.0-34.9, adult

== ENCOUNTER → 2019-11-03 | Outpatient (REF) | payer OTHER ==
[~2019-11-03] MED LIST changes: +DIVA500T9 PO; +FURO40TA2 PO; +LATU1TAB PO; +LATU40TA PO; +NICO21PAT TD; +OZEM2INJ SQ
[2019-11-03 13:55] LABS: HEMATOCRIT 41.1 % (42.0-52.0); HEMOGLOBIN 12.9 g/dl (13.5-17.5); MEAN CORPUSCULAR HEMOGLOBIN 29.8 pg (27.0-33.0); MEAN CORPUSCULAR HGB CONC 31.4 g/dl (32.0-36.5); MEAN CORPUSCULAR VOLUME 94.9 fl (80.0-96.0); PLATELET COUNT, AUTOMATED 378 10^3/uL (150-450); RED BLOOD COUNT 4.33 10^6/uL (4.30-6.10); WHITE BLOOD COUNT 8.1 10^3/uL (4.0-10.0)
[2019-11-03 14:48] LABS: ALBUMIN 3.2 GM/DL (3.2-5.2); ALT/SGPT 64 U/L (12-78); BILIRUBIN,TOTAL 0.4 MG/DL (0.2-1.0); BLOOD UREA NITROGEN 17 MG/DL (7-18); CALCIUM LEVEL 8.9 MG/DL (8.8-10.2); CARBON DIOXIDE LEVEL 30 MEQ/L (21-32); CHLORIDE LEVEL 103 MEQ/L (98-107); CHOLESTEROL LEVEL 181 MG/DL (<200); CHOLESTEROL RISK RATIO 3.851 (<5); CREATININE FOR GFR 0.91 MG/DL (0.70-1.30); GLOMERULAR FILTRATION RATE > 60.0 (>49); GLUCOSE, FASTING 116 MG/DL (70-100); HDL CHOLESTEROL 47 MG/DL (>40); LDL CHOLESTEROL 115 MG/DL (<100); MAGNESIUM LEVEL 1.7 MG/DL (1.8-2.4); NON-HDL-C 134 MG/DL; POTASSIUM SERUM 4.9 MEQ/L (3.5-5.1); SODIUM LEVEL 136 MEQ/L (136-145); TOTAL 25(OH) VITAMIN D 22.1 NG/ML (30.0-100.0); TOTAL PROTEIN 6.6 GM/DL (6.4-8.2); TRIGLYCERIDES LEVEL 96 MG/DL (<150); VALPROIC ACID (DEPAKOTE) 22.6 UG/ML (50.0-100.0)
[2019-11-03 15:41] LABS: CREATININE, URINE 88.2 MG/DL; MALB URINE SIEMENS 5.7 MG/L; MAU/CREAT RATIO 6.4 MCG/MG (0.0-30.0)
[2019-11-03 20:15] LABS: HEMOGLOBIN A1c 6.3 %
== END ==
LOC: M SFHCCLAY 12:00
PROVIDERS: ATTEND Nurse Practitioner Family
DX: E55.9 Vitamin D deficiency, unspecified (principal); I10 Essential (primary) hypertension; E11.9 Type 2 diabetes mellitus without complications; F31.0 Bipolar disorder, current episode hypomanic